=== PATIENT | female | born 1950 | race African-American/Black ===

== ENCOUNTER 2021-11-11 08:14 | Emergency (ER) | payer OTHER, MEDICAID ==
[~2021-11-11] VITALS: Ht 170.2 cm; Wt 114.0 kg
[2021-11-11] MEDS ORDERED: MAGNESIUM/ALUMINUM HYDROXIDE/SIMETHICONE 30ML UDC PO ONE (09:00)
[2021-11-11] MEDS ORDERED: ONDANSETRON HCL 4MG/2ML INJ IV ONE (09:00)
[2021-11-11] MEDS ORDERED: PANTOPRAZOLE SODIUM 40 MG/VIAL IV ONE (09:00)
[2021-11-11] MEDS ORDERED: VISCOUS LIDOCAINE 2% 15 ML UDC MM ONE (09:00)
[2021-11-11 10:11] LABS: CHLORIDE 112 mEq/L (98-107)
[2021-11-11 10:20] LABS: BASOPHILS % 0.4 % (0.0-2.0); EOSINOPHILS % 2.1 % (0.0-5.0); HEMATOCRIT. 39.6 % (36.0-48.0); HEMOGLOBIN. 12.5 g/dL (12.0-16.0); LYMPHOCYTES % 37.2 % (20.0-50.0); MEAN CORPUSCULAR HEMOGLOBIN 27.5 pg (28.0-32.0); MEAN CORPUSCULAR VOLUME 86.7 fL (81.0-99.0); NEUTROPHILS % 52.3 % (40.0-76.0); PLATELET 136 x1000/uL (130-400); RED BLOOD CELL COUNT 4.57 mill/uL (4.2-5.4); RED CELL DISTRIBUTION WIDTH 17.6 % (11.6-14.6)
[2021-11-11 10:23] LABS: ETHANOL BLOOD < 10 mg/dL
[2021-11-11] MEDS ORDERED: PROT40 MT (14:51)
[2021-11-11] MEDS ORDERED: ONDA4TAB5 MT (14:51)
[2021-11-11 15:54] VITALS: BP 165/88
== END 2021-11-11 15:57 | disposition home or self-care (01) ==
LOC: ER 08:32
DX: R10.13 Epigastric pain (principal); R74.01 Elevation of levels of liver transaminase levels; R11.0 Nausea; I10 Essential (primary) hypertension; M06.9 Rheumatoid arthritis, unspecified; Z88.8 Allergy status to other drugs, medicaments and biological substances; Z85.89 Personal history of malignant neoplasm of other organs and systems; Z90.49 Acquired absence of other specified parts of digestive tract
CPT/HCPCS: 36415; 71045; 74176; 76700; 80053; 80307; 80320; 83605; 83690; 83880; 84484; 85025; 93005; 96374; 96375; 99285; C9113; J2405; G0480